=== PATIENT | female | born 1980 | race Caucasian/White ===

== ENCOUNTER → 2019-10-14 | Outpatient (CLI) | payer OTHER ==
--- NOTE | 2019-10-14 14:47 | US ---
EXAM DESCRIPTION: Soft Tissue,Head/Neck: ULTRASOUND. CLINICAL HISTORY: 39 years Female PAIN IN THROAT. Right submandibular region. COMPARISON: None Available. TECHNIQUE: Transcutaneous scanning: Zacarias-scale and Doppler modes. FINDINGS: Right submandibular gland demonstrated. Heterogeneous echoes. 2.5 x 2.2 x 1.2 cm. Intraglandular hypoechoic lymph node visualized measuring 3.9 x 3.6 mm. Feeding vessel visualized entering the superior gland with no significant vascularity in the gland. No dominant solid mass, no distinct cyst, no large calcifications. No fluid collection. IMPRESSION: Right submandibular gland with small hypoechoic region most likely a intraglandular lymph node. Electronically signed by: Mil Sharma MD 10/14/2019 2:46 PM CDT
== END ==
LOC: US 08:01
PROVIDERS: ATTEND Nurse Practitioner Family
DX: R07.0 Pain in throat (principal)

== ENCOUNTER → 2019-11-22 | Outpatient (CLI) | payer OTHER ==
--- NOTE | 2019-11-23 16:44 | MAM ---
EXAM DESCRIPTION: 3D Screening BILATERAL : Digital Mammography. CLINICAL HISTORY: 39 years Female SCREENING . No complaints. Unable to determine family history. Menarche age 11. Childbirth age 23. Patient uses Mirena IUD. No HRT.. Lifetime risk of developing breast cancer (Tyrer-Cuzick model)(%): 9.0. COMPARISON: Baseline study at this facility.. No prior reports available. TECHNIQUE: Bilateral CC and MLO projection full-field images, digital tomosynthesis mammographic technique. Bilateral digital 2-D full-field MLO images. CAD available for 2-D images. FINDINGS: The breast parenchymal density pattern is: Scattered areas of fibroglandular density. No skin thickening or nipple retraction. Skin mole marker posterior lateral left breast. Bilateral solitary microcalcifications. Retroareolar right breast focal asymmetry without microcalcifications. No new focal, stellate mass or density, focal asymmetry , and no suspicious microcalcifications left breast. IMPRESSION: BI-RADS CATEGORY: 0 - INCOMPLETE- Need additional imaging evaluation. RECOMMENDATIONS: FOLLOW-UP: Recall for additional imaging: Targeted right breast ultrasound region of interest retroareolar.. Written communication concerning the IMPRESSION and Follow-up, will be mailed to the patient and referring health care provider. Electronically signed by: Mil Sharma MD 11/23/2019 4:42 PM CDT
== END ==
LOC: MAMMO 08:30
PROVIDERS: ATTEND Family Medicine
DX: Z12.31 Encounter for screening mammogram for malignant neoplasm of breast (principal)

== ENCOUNTER → 2019-12-07 | Outpatient (CLI) | payer OTHER ==
--- NOTE | 2019-12-09 09:17 | US ---
EXAM DESCRIPTION: Breast,Right: Ultrasound CLINICAL HISTORY: 39 yearsFemaleABN MAMMO right breast focal asymmetry. COMPARISON: Bilateral screening digital breast tomosynthesis November 21. TECHNIQUE: Transcutaneous scanning of the right breast utilizing bowers-scale and Doppler modes. Scanning performed by the lead systems analyst ; observation by Dr. Sharma. No diagnostic mammography was performed. FINDINGS: Ultrasound: Scanning of the retroareolar right breast. No dominant solid mass, no distinct cyst, no fluid collection, and no large calcifications. No overlying skin changes. IMPRESSION: Benign exam. BIRAD CATEGORY: 2 BENIGN FINDINGS. RECOMMENDATIONS: FOLLOW UP: Routine digital bilateral mammographic screening, one year interval from November 2019. Written communication explaining the IMPRESSION and follow-up, will be mailed to the patient and referring health care provider. According to the [employer], yearly mammograms are recommended starting at age 40 and continuing as long as a woman is in good health. Any breast change noted on a breast self-exam should be reported promptly to the patient's healthcare provider. Breast MRI is recommended for women with an approximately 20-25% or greater lifetime risk of breast cancer, including women with a strong family history of breast or ovarian cancer and women who have been treated for Hodgkin's disease. A negative mammographic report should not delay tissue diagnosis in patients with significant clinical history or physical findings. Extremely dense breast tissue limits the sensitivity of digital mammography. Electronically signed by: Mil Sharma MD 12/09/2019 9:15 AM CDT
== END ==
LOC: US 13:00
PROVIDERS: ATTEND Family Medicine
DX: R92.8 Other abnormal and inconclusive findings on diagnostic imaging of breast (principal)